=== PATIENT | female | born 1995 | race Caucasian/White ===

== ENCOUNTER 2018-07-07 10:25 | Outpatient (CLI) | payer MEDICAID ==
[2018-07-07 10:16] VITALS: BP 124/72
[~2018-07-07 10:25] MED LIST: HYDR-4353 PO
== END 2018-07-07 10:47 | disposition home or self-care (01) ==
LOC: ORTHO 10:25
PROVIDERS: ATTEND Nurse Practitioner Family
DX: S62.014A Nondisplaced fracture of distal pole of navicular [scaphoid] bone of right wrist, initial encounter for closed fracture (principal); W01.0XXA Fall on same level from slipping, tripping and stumbling without subsequent striking against object, initial encounter; Y93.01 Activity, walking, marching and hiking; Y92.89 Other specified places as the place of occurrence of the external cause; Y99.8 Other external cause status
CPT/HCPCS: 99213; A4590

== ENCOUNTER 2018-07-30 11:01 | Outpatient (CLI) | payer MEDICAID ==
[2018-07-30 10:59] VITALS: BP 121/77
== END 2018-07-30 11:28 | disposition home or self-care (01) ==
LOC: ORTHO 11:01
PROVIDERS: ATTEND Nurse Practitioner Family
DX: S62.024D Nondisplaced fracture of middle third of navicular [scaphoid] bone of right wrist, subsequent encounter for fracture with routine healing (principal); Z60.2 Problems related to living alone; W18.09XD Striking against other object with subsequent fall, subsequent encounter
CPT/HCPCS: 73110; 99213

== ENCOUNTER 2018-08-20 10:47 | Outpatient (CLI) | payer MEDICAID ==
[2018-08-20 10:46] VITALS: BP 121/75
== END 2018-08-20 10:50 | disposition home or self-care (01) ==
LOC: ORTHO 10:47
PROVIDERS: ATTEND Nurse Practitioner Family
DX: S62.024D Nondisplaced fracture of middle third of navicular [scaphoid] bone of right wrist, subsequent encounter for fracture with routine healing (principal); W01.0XXD Fall on same level from slipping, tripping and stumbling without subsequent striking against object, subsequent encounter; Z60.2 Problems related to living alone
CPT/HCPCS: 73110; 99213

== ENCOUNTER 2019-02-11 12:11 | Emergency (ER) | payer MEDICAID ==
[~2019-02-11] VITALS: Ht 167.6 cm; Wt 75.0 kg
[2019-02-11 12:14] VITALS: BP 137/77
--- NOTE | 2019-02-11 12:41 | NUR ---
pt is 23 yo female c/o facial swelling, dyspnea, throat swelling at 1140, ate [employer] at 1120 (shrimp, orange chicken, cruz mein), pt said symtoms are resolving, no resp distress, speaking full sentences, alert and oriented, friend at bedside, waiting to be evaluated by provider.
--- NOTE | 2019-02-11 13:34 | NUR ---
Margaret SPRING at bedside to evaluate pt, pt continues to rest quietly, talking full sentences, no resp distress
[2019-02-11] MEDS ORDERED: diphenhydrAMINE 25mg capsule PO ONE (13:40)
== END 2019-02-11 14:10 | disposition home or self-care (01) ==
LOC: ER 12:11
DX: T78.1XXA Other adverse food reactions, not elsewhere classified, initial encounter (principal); R13.10 Dysphagia, unspecified; L29.9 Pruritus, unspecified; R42 Dizziness and giddiness; R22.1 Localized swelling, mass and lump, neck; R06.00 Dyspnea, unspecified; R51 Headache; Z98.890 Other specified postprocedural states; Z60.2 Problems related to living alone; X58.XXXA Exposure to other specified factors, initial encounter
CPT/HCPCS: 99282; Q0163

== ENCOUNTER 2019-11-15 11:01 | Emergency (ER) | payer SELFPAY ==
[~2019-11-15] VITALS: Ht 167.6 cm; Wt 81.0 kg
[2019-11-15] MEDS ORDERED: ibuprofen tablet 400 MG TABLET PO ONE (12:45)
[2019-11-15 12:54] LABS: BASOPHILS % (AUTO) 0.4 % (0-1); EOSINOPHILS # (AUTO) 0.1 X10'3 (0-0.9); EOSINOPHILS % (AUTO) 0.9 % (0-6); HEMOGLOBIN 14.7 g/dl (12.0-16.0); LYMPHOCYTES # (AUTO) 2.2 X10'3 (1.1-4.8); LYMPHOCYTES % (AUTO) 25.1 % (21-51); MEAN CORPUSCULAR HGB CONC 34.2 g/dL (33.0-36.5); MEAN CORPUSCULAR VOLUME 87.9 FL (78-98); MEAN PLATELET VOLUME 9.4 FL (7.4-10.4); MONOCYTES # (AUTO) 0.6 X10'3 (0-0.9); MONOCYTES % (AUTO) 6.7 % (2-12); NEUTROPHILS # (AUTO) 5.7 X10'3 (1.8-7.7); NEUTROPHILS % (AUTO) 66.9 % (42-75); PLATELET COUNT 241 X10'3 (140-440); RED BLOOD COUNT 4.89 X10'6 (4.20-5.60); RED CELL DISTRIBUTION WIDTH 12.4 % (11.5-14.5); WHITE BLOOD COUNT 8.6 X10'3 (4.5-11.0)
[2019-11-15 12:57] LABS: URINE HCG NEGATIVE (NEG)
[2019-11-15 13:01] LABS: CLARITY,URINE CLOUDY (Clear); COLOR,URINE YELLOW (Yellow); GLUCOSE, URINE NEGATIVE (Neg); KETONES,URINE 15 mg/dl (Neg); LEUKOCYTE ESTERASE ,URINE NEGATIVE (Neg); NITRITES, URINE NEGATIVE (Neg); OCCULT BLOOD,URINE NEGATIVE (Neg); PH,URINE 7.5 (4.8-8.0); PROTEIN,URINE TRACE mg/dl (Neg); UROBILINOGEN,URINE 0.2 E.U/dL (0.2-1.0)
[2019-11-15 13:04] LABS: UA COLLECTION TYPE CLN CATCH MIDSTREAM; URINE AMPHETAMINE SCREEN NEGATIVE (Neg); URINE BARBITUATE SCREEN NEGATIVE (Neg); URINE BENZODIAZEPINES SCREEN NEGATIVE (Neg); URINE CANNABINOID SCREEN POSITIVE (Neg); URINE COCAINE SCREEN NEGATIVE (Neg); URINE METHADONE SCREEN NEGATIVE (Neg); URINE OPIATE SCREEN NEGATIVE (Neg); URINE PHENCYCLIDINE SCREEN NEGATIVE (Neg)
[2019-11-15 13:05] LABS: D-DIMER 0.22 MG/L FEU (0-0.50)
[2019-11-15 13:08] LABS: ALANINE AMINOTRANSFERASE 108 U/L (12-78); ALBUMIN 4.6 G/DL (3.4-5.0); ALBUMIN/GLOBULIN RATIO 1.4 (1.1-1.5); ALKALINE PHOSPHATASE 70 IU/L (46-116); ANION GAP 11 (8-16); ASPARTATE AMINO TRANSFERASE 62 U/L (10-37); BILIRUBIN,TOTAL 0.7 MG/DL (0.1-1.0); BLOOD UREA NITROGEN 18 MG/DL (7-18); CALCIUM 8.8 MG/DL (8.5-10.1); CHLORIDE 105 MMOL/L (99-107); CREATININE 0.82 MG/DL (0.40-0.90); ETHANOL < 0.010 GM/DL (0.0-0.010); GLUCOSE 80 MG/DL (70-104); POTASSIUM 4.1 MMOL/L (3.5-5.1); SODIUM 140 MMOL/L (135-145); TOTAL CARBON DIOXIDE 23.9 MMOL/L (24-32); eGFR 87 ML/MIN
[2019-11-15 13:08] LABS: MUCUS STRANDS MODERATE /LPF (Neg); SQUAMOUS EPITHELIAL CELL,UR MANY /LPF (FEW)
[2019-11-15 13:10] LABS: BACTERIA,URINE 1+ /HPF (Neg); RBC,URINE 0-2 /HPF (0-2); WBC,URINE 0-4 /HPF (0-4)
[2019-11-15 14:05] VITALS: BP 106/73
== END 2019-11-15 14:25 | disposition home or self-care (01) ==
LOC: ER 11:02
DX: R55 Syncope and collapse (principal); R51 Headache; Z98.890 Other specified postprocedural states; Z60.2 Problems related to living alone; W18.39XA Other fall on same level, initial encounter; Y93.89 Activity, other specified; Y92.098 Other place in other non-institutional residence as the place of occurrence of the external cause; Y99.8 Other external cause status
CPT/HCPCS: 36415; 70450; 80053; 80305; 80320; 81001; 81025; 85025; 85379; 93005; 99284; 99285